=== PATIENT | male | born 1930 | race Asian ===

== ENCOUNTER 2017-04-24 08:48 | Outpatient (CLI) | payer MEDICARE, BC ==
[2017-04-24 09:46] LABS: Anion Gap 12 mmol/L (10-20); BUN (Urea Nitrogen) 13 mg/dL (8.4-25.7); Calc. Creatinine Clearance 0 mL/min (70-130); Calcium 9.2 mg/dL (7.8-10.44); Carbon Dioxide 26 mmol/L (23-31); Chloride 103 mmol/L (98-107); Estimated GFR-MDRD Greater than 90; Glucose 112 mg/dL (83-110); Potassium 4.2 mmol/L (3.5-5.1); Sodium 137 mmol/L (136-145)
--- NOTE | 2017-04-24 12:46 | CT ---
ABDOMEN CT WITH AND WITHOUT CONTRAST PELVIC CT WITH AND WITHOUT CONTRAST: Date: 04/24/17 HISTORY: Gross hematuria. Urinary frequency x1 week. COMPARISON: None. TECHNIQUE: Abdomen and pelvis CT are performed with and without IV contrast. Coronal reformatted images are subm itted for interpretation. FINDINGS: ABDOMEN CT: 3-4 mm nodules in the right lower lobe. Areas of scarring and atelectasis in the dependent portion of both lungs. Heart size is upper normal. No significant pericardial fluid. Descending thoracic aorta is unremarkab le. 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 At the level of thrombus, aorta is shreya ures 8.9 cm mediolateral x 5.9 cm craniocaudal. Aortic bifurcation and visualized iliac arteries are unremarkable. Symmetric attenuation of the psoas muscles. Intra and extrahepatic portal vein is patent. Gallbladder is unremarkable. Liver, spleen, pancreas, a nd adrenal glands have appropriate enhancement. No gastrohepatic, retrocrural, or periportal lymphade nopathy. Visualized alimentary canal is unremarkable. Evaluation is limited by the absence of oral contrast ad ministration. There are hypodensities emanating from the left renal cortex and right renal cortex. Lesions are too small to characterize, but are statistically favored to be cysts. There is an exophytic hypodensity e manating from the lower pole of the left kidney with attenuation coefficient of 6 Hounsfield units on the noncontrast study. A 1.5 cm cyst is favored. Bilaterally, no hydronephrosis, nephrolithiasis, or perinephric fat stranding. Symmetric enhancement of the kidneys. There is symmetric excretion into u nremarkable intra and extrarenal collecting systems. No filling defects. No hydroureter, periureteral fat stranding, or ureterolithiasis. PELVIC CT: Contrast opacifies the dependent portion of the urinary bladder. No obvious filling defects in the de pendent portion of the urinary bladder. There is a soft tissue mass in the anterior left aspect of th e urinary bladder measuring 1.7 x 1.7 cm. There is irregularity of the serosal margin of the bladder at this level. Neoplasm is favored. No lytic or blastic lesions within the osseous structures. IMPRESSION: 1. Mucosal based abnormality anterior left urinary bladder, worrisome for neoplasm until proven othe rwise. There may be extension into the serosal margin of the urinary bladder. 2. 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 Cardiovascular surgical consultat ion is recommended for medical management/surgical management. 3. No evidence of nephrolithiasis or obstructive uropathy. Results of study discussed with Dr. Vanna Mckay's nurse, on 04/24/17 at 1040 hours. CODE CR. POS: GURPREET
[2017-04-24] MEDS ORDERED: Iopamidol 370 76% 100 ML VIAL ONE (16:43)
== END 2017-04-24 08:49 | disposition home or self-care (01) ==
LOC: CT 08:48
PROVIDERS: ATTEND Urology
DX: R31.0 Gross hematuria (principal); I70.0 Atherosclerosis of aorta; I71.4 Abdominal aortic aneurysm, without rupture; N32.89 Other specified disorders of bladder
CPT/HCPCS: 36415; 74178; 80048